=== PATIENT | female | born 1985 | race African-American/Black ===

== ENCOUNTER 2017-09-12 16:50 | Emergency (ER) | payer OTHER ==
[~2017-09-12] VITALS: Ht 165.1 cm; Wt 72.6 kg
[2017-09-12 18:05] LABS: BILIRUBIN,URINE NEGATIVE (NEG); GLUCOSE,URINE NEGATIVE (NEG); NITRITE,URINE NEGATIVE (NEG); PH,URINE 7.5; PROTEIN,URINE NEGATIVE (NEG-TRACE); UROBILINOGEN,URINE 0.2 mg/dL (0.2 mg/dL)
[2017-09-12 18:15] LABS: BACTERIA,URINE FEW /HPF (0-FEW); RBC,URINE >40 /HPF (0-2); SQUAMOUS EPITHELIAL CELL,UR FEW /LPF; WBC,URINE OCC /HPF (0-4)
[2017-09-12 18:24] LABS: BASO # 0.1 x10^3/uL (0.0-0.2); BASO % 1 % (0-3); EOS % 3 % (0-3); HEMATOCRIT 29.5 % (36.0-47.0); HEMOGLOBIN 8.9 g/dL (12.0-15.5); LYMPH # 1.6 x10^3/uL (1.0-4.8); LYMPH % 30 % (24-48); MEAN CORPUSCULAR HEMOGLOBIN 20 pg (25-35); MEAN CORPUSCULAR HGB CONC 30 g/dL (31-37); MEAN CORPUSCULAR VOLUME 68 fL (79-100); MONO % 9 % (0-9); NEUT % 57 % (31-73); PLATELET COUNT 319 x10^3/uL (140-400); RED BLOOD COUNT 4.35 x10^6/uL (3.50-5.40); RED CELL DISTRIBUTION WIDTH 19.6 % (11.5-14.5); WHITE BLOOD COUNT 5.3 x10^3/uL (4.0-11.0)
[2017-09-12 18:56] LABS: PLT ESTIMATE ADEQUATE (ADEQUATE)
[2017-09-12 18:57] LABS: ANISOCYTOSIS SLIGHT; HYPOCHROMIA MOD; MICROCYTOSIS MARKED; OVALOCYTES MOD; POIKILOCYTOSIS MOD
--- NOTE | 2017-09-12 19:04 | RAD ---
Ultrasound pelvis with transvaginal 09/12/2017 CLINICAL INDICATION: Heavy bleeding for 2 days, abnormal bleeding since December 2016. . Technique transabdominal and transvaginal images were obtained. FINDINGS: Uterus is present measuring 9.9 x 6.1 x 5.4 cm with no discrete myometrial mass lesion. Endometrium is normal in thickness measuring 7 mm without abnormal endometrial blood flow. Right ovary is present measuring 4.1 x 2.2 x 1.6 cm. Normal color Doppler imaging on the right ovary. Left ovary is present measuring 2.6 x 3.0 x 1.3 cm with normal color Doppler imaging of the left ovary. There is mild pelvic free fluid. IMPRESSION: 1. Normal thickness endometrium without abnormal blood flow to suggest retained products of conception. 2. Mild pelvic free fluid, may be physiologic. Electronically signed by: Germán Eldridge MD (09/12/2017 7:01 PM) [facility]
[2017-09-12] MEDS ORDERED: ESTR1.25 PO (19:26)
--- NOTE | 2017-09-12 19:26 | PHYS DOC ---
Past Medical History Past Medical History: Unknown Additional Past Medical Histor: Asthma Additional Past Surgical Histo: 2011 and December 2016 Alcohol Use: None Drug Use: None Adult General Chief Complaint Chief Complaint: VAGINAL BLEEDING HPI HPI Patient is a 31 year old female who presents with vaginal bleeding. The patient reports onset of menses yesterday, states she uses 3-4 pads per hour, soaking through her pants. She reports cramping lower abdominal pain. Denies fevers/chills, vomiting, diarrhea, dysuria, vaginal discharge. Denies lightheadedness or syncope. History of heavy menses previously, had to be on hormonal treatment. She states she had elective in 12/2016 with irregular menses since that time. Has a technical publications writer in [place] but wasn't able to make an appointment. Review of Systems Review of Systems Constitutional: Denies fever or chills HENT: Denies nasal congestion or sore throat Respiratory: Denies cough or shortness of breath Cardiovascular: Denies chest pain or edema GI: Reports abdominal pain, denies nausea, vomiting, or diarrhea : Reports vaginal bleeding. Musculoskeletal: Denies back pain or joint pain Integument: Denies rash or skin lesions Neurologic: Denies headache All other systems were reviewed and found to be within normal limits, except as documented in this note. Allergies Allergies Allergies Coded Allergies Type Severity Reaction Last Updated Verified azithromycin Allergy Severe SHORTNESS OF AIR 09/12/17 Yes acetaminophen Adverse Reaction Intermediate Nausea 09/12/17 Yes oxycodone Adverse Reaction Intermediate nausea 09/12/17 Yes Physical Exam Physical Exam Constitutional: Well developed, well nourished, no acute distress, non-toxic appearance. HENT: Normocephalic, atraumatic, bilateral external ears normal, oropharynx moist, nose normal. Eyes: conjunctiva normal, no discharge. Neck: supple, no stridor. Cardiovascular: RRR, no murmurs, no edema. Lungs & Thorax: LCTAB, no wheezing, no respiratory distress. Abdomen: soft, nontender, nondistended. no masses or pulsatile masses, no rebound/guarding. : normal appearing female external genitalia, normal cervix with closed os, moderate amount of red blood in the vaginal vault with clots at the os, no CMT/ adnexal tenderness, no uterine masses. Skin: Warm, dry, no erythema, no rash. Back: No CVA tenderness. Extremities: No tenderness, no edema. Neurologic: Alert and oriented X 3, no focal deficits noted. Psychologic: Affect normal, judgement normal, mood normal. Current Patient Data Vital Signs Vital Signs Date Time Temp Pulse Resp B/P (MAP) Pulse Ox O2 Delivery O2 Flow Rate FiO2 09/12/17 19:41 92 16 122/73 (89) 100 Room Air 09/12/17 18:07 98.9 98.9 Lab Values Laboratory Tests Test 09/12/17 17:09 09/12/17 18:12 Urine Collection Type Unknown Urine Color Yellow Urine Clarity Cloudy Urine pH 7.5 Urine Specific [place] 1.025 Urine Protein Negative mg/dL (NEG-TRACE) Urine Glucose (UA) Negative mg/dL (NEG) Urine Ketones (Stick) Negative mg/dL (NEG) Urine Blood Large (NEG) Urine Nitrite Negative (NEG) Urine Bilirubin Negative (NEG) Urine Urobilinogen Dipstick 0.2 mg/dL (0.2 mg/dL) Urine Leukocyte Esterase Negative (NEG) Urine RBC >40 /HPF (0-2) Urine WBC Occ /HPF (0-4) Urine Squamous Epithelial Cells Few /LPF Urine Bacteria Few /HPF (0-FEW) Urine Mucus Marked /LPF POC Urine HCG, Qualitative Hcg negative (Negative) White Blood Count 5.3 x10^3/uL (4.0-11.0) Red Blood Count 4.35 x10^6/uL (3.50-5.40) Hemoglobin 8.9 g/dL (12.0-15.5) L Hematocrit 29.5 % (36.0-47.0) L Mean Corpuscular Volume 68 fL (79-100) L Mean Corpuscular Hemoglobin 20 pg (25-35) L Mean Corpuscular Hemoglobin Concent 30 g/dL (31-37) L Red Cell Distribution Width 19.6 % (11.5-14.5) H Platelet Count 319 x10^3/uL (140-400) Neutrophils (%) (Auto) 57 % (31-73) Lymphocytes (%) (Auto) 30 % (24-48) Monocytes (%) (Auto) 9 % (0-9) Eosinophils (%) (Auto) 3 % (0-3) Basophils (%) (Auto) 1 % (0-3) Neutrophils # (Auto) 3.0 x10^3uL (1.8-7.7) Lymphocytes # (Auto) 1.6 x10^3/uL (1.0-4.8) Monocytes # (Auto) 0.5 x10^3/uL (0.0-1.1) Eosinophils # (Auto) 0.2 x10^3/uL (0.0-0.7) Basophils # (Auto) 0.1 x10^3/uL (0.0-0.2) Platelet Estimate Adequate (ADEQUATE) Hypochromasia Mod Poikilocytosis Mod Basophilic Stippling Present Anisocytosis Slight Microcytosis Marked Ovalocytes Mod Laboratory Tests 09/12/17 18:12 EKG EKG [] Radiology/Procedures Radiology/Procedures PROCEDURE: PELVIS W/TV Ultrasound pelvis with transvaginal 09/12/2017 CLINICAL INDICATION: Heavy bleeding for 2 days, abnormal bleeding since December 2016. . Technique transabdominal and transvaginal images were obtained. FINDINGS: Uterus is present measuring 9.9 x 6.1 x 5.4 cm with no discrete myometrial mass lesion. Endometrium is normal in thickness measuring 7 mm without abnormal endometrial blood flow. Right ovary is present measuring 4.1 x 2.2 x 1.6 cm. Normal color Doppler imaging on the right ovary. Left ovary is present measuring 2.6 x 3.0 x 1.3 cm with normal color Doppler imaging of the left ovary. There is mild pelvic free fluid. IMPRESSION: 1. Normal thickness endometrium without abnormal blood flow to suggest retained products of conception. 2. Mild pelvic free fluid, may be physiologic. Electronically signed by: Ginette Eldridge MD (09/12/2017 7:01 PM) [facility] DICTATED and SIGNED BY: GINETTE ELDRIDGE MD DATE: 09/12/17 [id number][] Course & Med Decision Making Course & Med Decision Making Pertinent Labs and Imaging studies reviewed. (See chart for details) The patient presents with menorrhagia. Urine HCG negative, noted to be anemic but states previously Hgb has been as low as 6-7 & she elected not to have transfusion. She had stable vitals. Consulted with Dr. Solares of gynecology who recommends premarin 1.25 mg, BID until bleeding stops then daily. She is a nonsmoker, no history of DVT/PE. Recommend rest, hydration, ibuprofen for pain. Follow up with Dr. Solares next Tuesday 09/18 at 1500. Come back for high fever, severe pain, uncontrolled vomiting, heavy bleeding requiring > 1 pad per hour, any otherwise worsening condition. Discharged home in stable condition. [] Dragon Disclaimer Dragon Disclaimer This electronic medical record was generated, in whole or in part, using a voice recognition dictation system. Departure Departure Impression: Primary Impression: Menorrhagia Additional Impression: Anemia Disposition: 01 HOME, SELF-CARE Condition: STABLE Referrals: UNKNOWN PCP NAME (PCP) TWILA SOLARES MD Patient Instructions: Menorrhagia, [id number] Additional Instructions: You were seen in the emergency department today for heavy vaginal bleeding. Your hemoglobin is 8.9. Please take the prescribed medication. Take 1 tablet twice daily until bleeding stops, then take 1 tablet daily. Follow up with Dr. Solares in the gynecology clinic next Saturday at 3:00 PM. Come back for severe pain, uncontrolled vomiting, fainting, any otherwise worsening condition. Scripts Estrogens, Conjugated (PREMARIN) 1.25 Mg Tablet 1 TAB PO see instructions, #30 TAB 0 Refills take 1 tablet by mouth twice daily until bleeding stops, then take 1 tablet by mouth daily. Prov: ZAKI BOJORQUEZ MD 09/12/17 Problem Qualifiers Primary Impression: Menorrhagia Menorrahagia type: with regular cycle Qualified Codes: N92.0 - Excessive and frequent menstruation with regular cycle ZAKI BOJORQUEZ MD Sep 12, 2017 19:26
[2017-09-12 19:41] VITALS: BP 122/73
== END 2017-09-12 19:43 | disposition home or self-care (01) ==
LOC: ER 16:50
DX: N92.0 Excessive and frequent menstruation with regular cycle (principal); D64.9 Anemia, unspecified; N93.9 Abnormal uterine and vaginal bleeding, unspecified; J45.909 Unspecified asthma, uncomplicated; Z88.1 Allergy status to other antibiotic agents; Z88.5 Allergy status to narcotic agent; Z88.6 Allergy status to analgesic agent
CPT/HCPCS: 36415; 76830; 76856; 81001; 81025; 85025; 87491; 87591; 99285-25

== ENCOUNTER 2017-12-18 08:28 | Day surgery (SDC) | payer OTHER ==
[~2017-12-18 08:28] MED LIST: LIDOCAINE 1% PF 2 ML VIAL. ID; ONDANSETRON PF 4 MG/2 ML VIAL. IV; PROCHLORPERAZINE 10 MG/2 ML VIAL. IV; fentaNYL PF VIAL 100 MCG/2 ML VIAL IV
[2017-12-18] MEDS: IV RINGERS,LACTATED 1000ML 1,000 ML IV (08:59)
[2017-12-18 09:16] LABS: NEG OBC UR NEG; POS OBC UR POS
[2017-12-18 09:17] LABS: U PREG PATIENT NEGATIVE (NEG)
[2017-12-18] MEDS ORDERED: LIDOCAINE 2% PF Vial for OR 5 ML VIAL. (09:34)
[2017-12-18] MEDS ORDERED: fentaNYL PF VIAL 100 MCG/2 ML VIAL (09:34)
[2017-12-18] MEDS ORDERED: PROPOFOL 20 ML IV (09:34)
[2017-12-18] MEDS ORDERED: SEVOFLURANE 31 TO 60 MINUTES. IH (10:22)
[2017-12-18] MEDS ORDERED: DEXAMETHASONE SOD PHOS 20 MG/5 ML VIAL. (10:22)
[2017-12-18] MEDS: fentaNYL PF VIAL 100 MCG/2 ML VIAL IV ×2 (11:07→11:28)
[2017-12-18] MEDS: HYDROcodone/APAP 5/325MG 1 TAB TABLET PO (11:28)
== END 2017-12-18 12:26 | disposition home or self-care (01) ==
LOC: SURG 08:28
DX: N93.8 Other specified abnormal uterine and vaginal bleeding (principal); N94.4 Primary dysmenorrhea; J45.909 Unspecified asthma, uncomplicated; D64.9 Anemia, unspecified; G47.39 Other sleep apnea; Z86.2 Personal history of diseases of the blood and blood-forming organs and certain disorders involving the immune mechanism; Z88.6 Allergy status to analgesic agent; Z88.1 Allergy status to other antibiotic agents; Z88.8 Allergy status to other drugs, medicaments and biological substances
CPT/HCPCS: 58558; 81025; 88305; J1100; J2704; J3010; J7120

== ENCOUNTER 2018-03-06 17:26 | Emergency (ER) | payer OTHER ==
[2018-03-06 17:44] LABS: URINE HCG POC HCG POSITIVE (Negative)
[2018-03-06 17:59] LABS: ADD MAN DIFF? NO
[2018-03-06 18:03] LABS: BASO # 0.1 x10^3/uL (0.0-0.2); BASO % 1 % (0-3); EOS # 0.1 x10^3/uL (0.0-0.7); EOS % 1 % (0-3); HEMATOCRIT 23.9 % (36.0-47.0); HEMOGLOBIN 7.4 g/dL (12.0-15.5); LYMPH # 1.6 x10^3/uL (1.0-4.8); LYMPH % 22 % (24-48); MEAN CORPUSCULAR HEMOGLOBIN 19 pg (25-35); MEAN CORPUSCULAR HGB CONC 31 g/dL (31-37); MEAN CORPUSCULAR VOLUME 62 fL (79-100); MONO # 0.6 x10^3/uL (0.0-1.1); MONO % 8 % (0-9); NEUT # 4.9 x10^3uL (1.8-7.7); NEUT % 68 % (31-73); PLATELET COUNT 298 x10^3/uL (140-400); RED BLOOD COUNT 3.87 x10^6/uL (3.50-5.40); RED CELL DISTRIBUTION WIDTH 19.7 % (11.5-14.5); WHITE BLOOD COUNT 7.3 x10^3/uL (4.0-11.0)
[2018-03-06 18:09] LABS: ANION GAP 9 (6-14); BLOOD UREA NITROGEN 13 mg/dL (7-20); CALCIUM 8.8 mg/dL (8.5-10.1); CARBON DIOXIDE 27 mmol/L (21-32); CHLORIDE 106 mmol/L (98-107); CREATININE 0.9 mg/dL (0.6-1.0); GFR 86.7; GLUCOSE 101 mg/dL (70-99); POTASSIUM 3.3 mmol/L (3.5-5.1); SODIUM 142 mmol/L (136-145)
[2018-03-06 18:23] LABS: BILIRUBIN,URINE NEGATIVE (NEG); CLARITY,URINE CLEAR; COLOR,URINE YELLOW; GLUCOSE,URINE NEGATIVE (NEG); NITRITE,URINE NEGATIVE (NEG); PH,URINE 5.5; PROTEIN,URINE NEGATIVE (NEG-TRACE); UROBILINOGEN,URINE 0.2 mg/dL (0.2 mg/dL)
[2018-03-06 18:33] LABS: BACTERIA,URINE 0 /HPF (0-FEW); RBC,URINE 0 /HPF (0-2); SQUAMOUS EPITHELIAL CELL,UR FEW /LPF
[2018-03-06 19:08] LABS: ANISOCYTOSIS SLIGHT; HYPOCHROMIA MARKED; MICROCYTOSIS MARKED; OVALOCYTES FEW; PLT ESTIMATE ADEQUATE (ADEQUATE); POLYCHROMASIA SLIGHT; TARGET CELLS OCC; TEAR DROP CELLS OCC
[2018-03-10 15:25] LABS: CHLAMYDIA PROBE Negative (Negative); GC PROBE Negative (Negative)
== END 2018-03-06 20:28 | disposition home or self-care (01) ==
LOC: ER 17:26
DX: O20.0 Threatened abortion (principal); O23.591 Infection of other part of genital tract in pregnancy, first trimester; O99.011 Anemia complicating pregnancy, first trimester; O99.511 Diseases of the respiratory system complicating pregnancy, first trimester; J45.909 Unspecified asthma, uncomplicated; B96.89 Other specified bacterial agents as the cause of diseases classified elsewhere; Z88.1 Allergy status to other antibiotic agents; Z3A.01 Less than 8 weeks gestation of pregnancy; Z88.5 Allergy status to narcotic agent; Z88.6 Allergy status to analgesic agent
CPT/HCPCS: 36415; 76801; 76817; 80048; 81001; 81025; 84702; 85025; 86850; 86900; 86901; 87491; 87591; 99285-25; Q0111

== ENCOUNTER 2018-03-09 15:18 | Emergency (ER) | payer OTHER ==
[2018-03-09 16:13] LABS: BILIRUBIN,URINE NEGATIVE (NEG); CLARITY,URINE CLEAR; COLOR,URINE YELLOW; GLUCOSE,URINE NEGATIVE (NEG); NITRITE,URINE NEGATIVE (NEG); PH,URINE 5.5; PROTEIN,URINE NEGATIVE (NEG-TRACE); UROBILINOGEN,URINE 0.2 mg/dL (0.2 mg/dL)
[2018-03-09 16:15] LABS: ADD MAN DIFF? NO
[2018-03-09 16:20] LABS: BASO # 0.1 x10^3/uL (0.0-0.2); BASO % 1 % (0-3); EOS # 0.1 x10^3/uL (0.0-0.7); EOS % 1 % (0-3); HEMATOCRIT 23.9 % (36.0-47.0); HEMOGLOBIN 7.4 g/dL (12.0-15.5); LYMPH # 1.5 x10^3/uL (1.0-4.8); LYMPH % 22 % (24-48); MEAN CORPUSCULAR HEMOGLOBIN 19 pg (25-35); MEAN CORPUSCULAR HGB CONC 31 g/dL (31-37); MEAN CORPUSCULAR VOLUME 61 fL (79-100); MONO # 0.7 x10^3/uL (0.0-1.1); MONO % 10 % (0-9); NEUT # 4.3 x10^3uL (1.8-7.7); NEUT % 66 % (31-73); PLATELET COUNT 309 x10^3/uL (140-400); RED BLOOD COUNT 3.91 x10^6/uL (3.50-5.40); RED CELL DISTRIBUTION WIDTH 20.1 % (11.5-14.5); WHITE BLOOD COUNT 6.6 x10^3/uL (4.0-11.0)
[2018-03-09 16:25] LABS: BACTERIA,URINE FEW /HPF (0-FEW); RBC,URINE 0 /HPF (0-2); SQUAMOUS EPITHELIAL CELL,UR MANY /LPF; WBC,URINE OCC /HPF (0-4)
[2018-03-09 16:30] LABS: ANION GAP 9 (6-14); BLOOD UREA NITROGEN 11 mg/dL (7-20); CALCIUM 8.6 mg/dL (8.5-10.1); CARBON DIOXIDE 27 mmol/L (21-32); CHLORIDE 104 mmol/L (98-107); CREATININE 0.7 mg/dL (0.6-1.0); GFR 115.9; GLUCOSE 78 mg/dL (70-99); POTASSIUM 3.4 mmol/L (3.5-5.1); SODIUM 140 mmol/L (136-145)
[2018-03-09 16:47] LABS: ANISOCYTOSIS MOD; HYPOCHROMIA MOD; MICROCYTOSIS MARKED; PLT ESTIMATE ADEQUATE (ADEQUATE); POLYCHROMASIA SLIGHT; SCHISTOCYTES OCC
[2018-03-09 16:48] LABS: OVALOCYTES FEW
== END 2018-03-09 18:58 | disposition home or self-care (01) ==
LOC: ER 18:58
DX: O20.0 Threatened abortion (principal); O99.511 Diseases of the respiratory system complicating pregnancy, first trimester; J45.909 Unspecified asthma, uncomplicated; Z3A.01 Less than 8 weeks gestation of pregnancy; Z88.1 Allergy status to other antibiotic agents; Z88.5 Allergy status to narcotic agent
CPT/HCPCS: 36415; 76801; 76817; 80048; 81001; 84702; 85025; 99285-25

== ENCOUNTER 2018-03-15 12:09 | Emergency (ER) | payer OTHER ==
[2018-03-15 12:24] LABS: URINE HCG POC HCG POSITIVE (Negative)
[2018-03-15] MEDS: ONDANSETRON ODT 4 MG TAB.RAPDIS. PO (13:29)
== END 2018-03-15 15:29 | disposition home or self-care (01) ==
LOC: ER 12:09
DX: O20.0 Threatened abortion (principal); O23.591 Infection of other part of genital tract in pregnancy, first trimester; N76.0 Acute vaginitis; B96.89 Other specified bacterial agents as the cause of diseases classified elsewhere; O99.511 Diseases of the respiratory system complicating pregnancy, first trimester; J45.909 Unspecified asthma, uncomplicated; Z3A.01 Less than 8 weeks gestation of pregnancy; Z88.5 Allergy status to narcotic agent; Z88.1 Allergy status to other antibiotic agents
CPT/HCPCS: 36415; 76805; 76817; 81025; 84702; 99285-25; Q0162

== ENCOUNTER 2018-03-23 19:25 | Emergency (ER) | payer OTHER ==
[2018-03-23 20:44] LABS: BILIRUBIN,URINE NEGATIVE (NEG); CLARITY,URINE CLEAR; COLOR,URINE YELLOW; GLUCOSE,URINE NEGATIVE (NEG); NITRITE,URINE NEGATIVE (NEG); PROTEIN,URINE NEGATIVE (NEG-TRACE); UROBILINOGEN,URINE 0.2 mg/dL (0.2 mg/dL)
[2018-03-23] MEDS: ONDANSETRON PF 4 MG/2 ML VIAL. IV (20:45)
[2018-03-23] MEDS: IV NORMAL SALINE 1000ML BAG 1,000 ML IV (20:45)
[2018-03-23 20:52] LABS: BACTERIA,URINE 0 /HPF (0-FEW); RBC,URINE 0 /HPF (0-2); SQUAMOUS EPITHELIAL CELL,UR FEW /LPF
[2018-03-23 21:03] LABS: ADD MAN DIFF? NO
[2018-03-23 21:12] LABS: ANION GAP 9 (6-14); BASO % 1 % (0-3); BLOOD UREA NITROGEN 16 mg/dL (7-20); BUN/CREATININE RATIO 20 (6-20); CALCIUM 8.8 mg/dL (8.5-10.1); CARBON DIOXIDE 27 mmol/L (21-32); CHLORIDE 102 mmol/L (98-107); CREATININE 0.8 mg/dL (0.6-1.0); EOS # 0.1 x10^3/uL (0.0-0.7); EOS % 1 % (0-3); GFR 99.4; GLUCOSE 81 mg/dL (70-99); HEMATOCRIT 24.9 % (36.0-47.0); HEMOGLOBIN 7.8 g/dL (12.0-15.5); LYMPH # 1.9 x10^3/uL (1.0-4.8); LYMPH % 19 % (24-48); MEAN CORPUSCULAR HEMOGLOBIN 19 pg (25-35); MEAN CORPUSCULAR HGB CONC 31 g/dL (31-37); MEAN CORPUSCULAR VOLUME 61 fL (79-100); MONO # 0.8 x10^3/uL (0.0-1.1); MONO % 8 % (0-9); NEUT # 7.4 x10^3uL (1.8-7.7); NEUT % 72 % (31-73); PLATELET COUNT 315 x10^3/uL (140-400); POTASSIUM 3.6 mmol/L (3.5-5.1); RED BLOOD COUNT 4.05 x10^6/uL (3.50-5.40); RED CELL DISTRIBUTION WIDTH 20.8 % (11.5-14.5); SODIUM 138 mmol/L (136-145); WHITE BLOOD COUNT 10.3 x10^3/uL (4.0-11.0)
[2018-03-23 21:17] LABS: ALBUMIN 3.4 g/dL (3.4-5.0); ALBUMIN/GLOBULIN RATIO 0.7 (1.0-1.7); ALK PHOS 61 U/L (46-116); ALT (SGPT) 21 U/L (14-59); AST (SGOT) 22 U/L (15-37); TOTAL BILIRUBIN 0.2 mg/dL (0.2-1.0); TOTAL PROTEIN 8.6 g/dL (6.4-8.2)
[2018-03-23 21:56] LABS: ANISOCYTOSIS MOD; HYPOCHROMIA MARKED; MICROCYTOSIS MARKED; OVALOCYTES FEW; PLT ESTIMATE ADEQUATE (ADEQUATE)
== END 2018-03-23 23:27 | disposition home or self-care (01) ==
LOC: ER 23:27
DX: O21.0 Mild hyperemesis gravidarum (principal); O99.511 Diseases of the respiratory system complicating pregnancy, first trimester; J45.909 Unspecified asthma, uncomplicated; Z88.5 Allergy status to narcotic agent; Z88.1 Allergy status to other antibiotic agents; Z88.6 Allergy status to analgesic agent; Z3A.01 Less than 8 weeks gestation of pregnancy
CPT/HCPCS: 36415; 80053; 81001; 85025; 87086; 96361; 96374; 99284; J2405; J7030

== ENCOUNTER 2018-07-24 18:53 | Emergency (ER) | payer OTHER ==
[~2018-07-24] VITALS: Ht 165.1 cm; Wt 83.5 kg
[~2018-07-24 18:53] MED LIST changes: +ESTR1.25 PO; -LIDOCAINE 1% PF 2 ML VIAL. ID; +METR45CR2 TP; +METR500T PO; +ONDA4TAB10 SL; -ONDANSETRON PF 4 MG/2 ML VIAL. IV; +PROAIR HFA8.5 GM INH; -PROCHLORPERAZINE 10 MG/2 ML VIAL. IV; -fentaNYL PF VIAL 100 MCG/2 ML VIAL IV
[2018-07-24 20:38] LABS: BILIRUBIN,URINE NEGATIVE (NEG); CLARITY,URINE CLEAR; COLOR,URINE YELLOW; NITRITE,URINE NEGATIVE (NEG); PH,URINE 5.5; PROTEIN,URINE NEGATIVE (NEG-TRACE)
[2018-07-24 20:57] LABS: BACTERIA,URINE 0 /HPF (0-FEW); RBC,URINE 0 /HPF (0-2); SQUAMOUS EPITHELIAL CELL,UR OCC /LPF; WBC,URINE OCC /HPF (0-4)
[2018-07-24 21:00] LABS: BASO % 1 % (0-3); EOS # 0.1 x10^3/uL (0.0-0.7); EOS % 2 % (0-3); HEMATOCRIT 30.9 % (36.0-47.0); HEMOGLOBIN 10.4 g/dL (12.0-15.5); LYMPH # 1.6 x10^3/uL (1.0-4.8); LYMPH % 30 % (24-48); MEAN CORPUSCULAR HEMOGLOBIN 26 pg (25-35); MEAN CORPUSCULAR HGB CONC 34 g/dL (31-37); MEAN CORPUSCULAR VOLUME 79 fL (79-100); MONO # 0.5 x10^3/uL (0.0-1.1); MONO % 10 % (0-9); NEUT % 57 % (31-73); PLATELET COUNT 220 x10^3/uL (140-400); RED BLOOD COUNT 3.93 x10^6/uL (3.50-5.40); RED CELL DISTRIBUTION WIDTH 20.7 % (11.5-14.5); WHITE BLOOD COUNT 5.3 x10^3/uL (4.0-11.0)
[2018-07-24] MEDS ORDERED: DOXYCYCLINE HYCLATE 100 MG TABLET PO ONE (21:00)
[2018-07-24] MEDS ORDERED: cefTRIAXone IM 250 MG VIAL IM ONE (21:00)
[2018-07-24 21:09] LABS: CREATININE 0.8 mg/dL (0.6-1.0); GFR 99.4; POTASSIUM 3.3 mmol/L (3.5-5.1)
[2018-07-24 21:16] LABS: ALBUMIN 3.5 g/dL (3.4-5.0); ALBUMIN/GLOBULIN RATIO 0.8 (1.0-1.7); TOTAL BILIRUBIN 0.2 mg/dL (0.2-1.0); TOTAL PROTEIN 7.8 g/dL (6.4-8.2)
[2018-07-24 21:44] LABS: ANISOCYTOSIS MOD; PLT ESTIMATE ADEQUATE (ADEQUATE); POIKILOCYTOSIS SLIGHT
[2018-07-24 21:45] LABS: OVALOCYTES OCC
--- NOTE | 2018-07-24 21:55 | RAD ---
Pelvic ultrasound to include transabdominal and transvaginal imaging 07/24/2018 CLINICAL HISTORY: Pelvic pain with irregular menstrual cycles. TECHNIQUE: Using the distended urinary bladder as a sonographic window, a real-time ultrasound examination of the pelvis was formed. Additionally in an attempt to better evaluate the uterus and adnexa, a transvaginal ultrasound was performed. Multiple images were obtained. FINDINGS: Comparison study is dated 09/12/2017. The uterus is mildly enlarged. It measures 11.4 x 6.8 x 5.6 cm in longitudinal, transverse, and AP dimensions. The endometrial echo complex measures 1.3 cm in thickness which is within normal limits. The uterus is heterogeneous consistent with fibroid involvement. The largest discrete fibroid is located within the posterior aspect of the uterine body. It measures 2 cm in greatest diameter. Both ovaries are within normal limits in size and echogenicity. The right ovary measures 3.3 x 2.2 x 1.5 cm in size. The left ovary measures 3.5 x 2.5 x 1.7 cm in size. No adnexal mass is seen. A small amount of free fluid is seen within the pelvis. IMPRESSION: 1. Enlarged fibroid uterus. 2. Small amount of free fluid. Electronically signed by: Stewart Rosado MD (07/24/2018 9:51 PM) [facility]
[2018-07-25] MEDS ORDERED: DOXY100C14 PO (00:26)
[2018-07-25] MEDS ORDERED: METR500T PO (00:26)
--- NOTE | 2018-07-25 00:27 | PHYS DOC ---
Past Medical History Past Medical History: Anemia, Asthma Additional Past Medical Histor: Asthma Past Surgical History: Other Additional Past Surgical Histo: X 2011 and December 2016 Alcohol Use: None Drug Use: None Adult General Chief Complaint Chief Complaint: ABDOMINAL PAIN HPI HPI Patient is a 32 year old [f__sex] who presents with [] Review of Systems Review of Systems Constitutional: Denies fever or chills [] Eyes: Denies change in visual acuity, redness, or eye pain [] HENT: Denies nasal congestion or sore throat [] Respiratory: Denies cough or shortness of breath [] Cardiovascular: No additional information not addressed in HPI [] GI: Denies abdominal pain, nausea, vomiting, bloody stools or diarrhea [] : Denies dysuria or hematuria [] Musculoskeletal: Denies back pain or joint pain [] Integument: Denies rash or skin lesions [] Neurologic: Denies headache, focal weakness or sensory changes [] Endocrine: Denies polyuria or polydipsia [] All other systems were reviewed and found to be within normal limits, except as documented in this note. Current Medications Current Medications Current Medications Medications (Trade) Dose Ordered Sig/Bhavani Start Time Stop Time Status Last Admin Dose Admin Ceftriaxone Sodium (Rocephin Im) 250 mg 1X ONCE 07/24/18 21:00 07/24/18 21:02 DC 07/24/18 21:50 250 MG Doxycycline Hyclate (Vibra-Tab) 100 mg 1X ONCE 07/24/18 21:00 07/24/18 21:02 DC 07/24/18 21:51 100 MG Allergies Allergies Allergies Coded Allergies Type Severity Reaction Last Updated Verified azithromycin Allergy Severe SHORTNESS OF AIR 12/18/17 Yes acetaminophen Adverse Reaction Intermediate Nausea 12/18/17 Yes oxycodone Adverse Reaction Intermediate nausea 12/18/17 Yes Physical Exam Physical Exam Constitutional: Well developed, well nourished, no acute distress, non-toxic appearance. [] HENT: Normocephalic, atraumatic, bilateral external ears normal, oropharynx moist, no oral exudates, nose normal. [] Eyes: PERRLA, EOMI, conjunctiva normal, no discharge. [] Neck: Normal range of motion, no tenderness, supple, no stridor. [] Cardiovascular:Heart rate regular rhythm, no murmur [] Lungs & Thorax: Bilateral breath sounds clear to auscultation [] Abdomen: Bowel sounds normal, soft, no tenderness, no masses, no pulsatile masses. [] Skin: Warm, dry, no erythema, no rash. [] Back: No tenderness, no CVA tenderness. [] Extremities: No tenderness, no cyanosis, no clubbing, ROM intact, no edema. [] Neurologic: Alert and oriented X 3, normal motor function, normal sensory function, no focal deficits noted. [] Psychologic: Affect normal, judgement normal, mood normal. [] Current Patient Data Vital Signs Vital Signs Date Time Temp Pulse Resp B/P (MAP) Pulse Ox O2 Delivery O2 Flow Rate FiO2 07/24/18 19:35 99.1 90 18 108/94 (99) 100 Room Air 99.1 Lab Values Laboratory Tests Test 07/24/18 19:35 07/24/18 20:16 07/24/18 20:51 Urine Collection Type Unknown Urine Color Yellow Urine Clarity Clear Urine pH 5.5 Urine Specific [place] >=1.030 Urine Protein Negative mg/dL (NEG-TRACE) Urine Glucose (UA) Negative mg/dL (NEG) Urine Ketones (Stick) Negative mg/dL (NEG) Urine Blood Negative (NEG) Urine Nitrite Negative (NEG) Urine Bilirubin Negative (NEG) Urine Urobilinogen Dipstick 1.0 mg/dL (0.2 mg/dL) Urine Leukocyte Esterase Negative (NEG) Urine RBC 0 /HPF (0-2) Urine WBC Occ /HPF (0-4) Urine Squamous Epithelial Cells Occ /LPF Urine Bacteria 0 /HPF (0-FEW) Urine Mucus Marked /LPF POC Urine HCG, Qualitative Hcg negative (Negative) White Blood Count 5.3 x10^3/uL (4.0-11.0) Red Blood Count 3.93 x10^6/uL (3.50-5.40) Hemoglobin 10.4 g/dL (12.0-15.5) L Hematocrit 30.9 % (36.0-47.0) L Mean Corpuscular Volume 79 fL (79-100) Mean Corpuscular Hemoglobin 26 pg (25-35) Mean Corpuscular Hemoglobin Concent 34 g/dL (31-37) Red Cell Distribution Width 20.7 % (11.5-14.5) H Platelet Count 220 x10^3/uL (140-400) Neutrophils (%) (Auto) 57 % (31-73) Lymphocytes (%) (Auto) 30 % (24-48) Monocytes (%) (Auto) 10 % (0-9) H Eosinophils (%) (Auto) 2 % (0-3) Basophils (%) (Auto) 1 % (0-3) Neutrophils # (Auto) 3.0 x10^3uL (1.8-7.7) Lymphocytes # (Auto) 1.6 x10^3/uL (1.0-4.8) Monocytes # (Auto) 0.5 x10^3/uL (0.0-1.1) Eosinophils # (Auto) 0.1 x10^3/uL (0.0-0.7) Basophils # (Auto) 0.0 x10^3/uL (0.0-0.2) Platelet Estimate Adequate (ADEQUATE) Poikilocytosis Slight Anisocytosis Mod Ovalocytes Occ Sodium Level 141 mmol/L (136-145) Potassium Level 3.3 mmol/L (3.5-5.1) L Chloride Level 104 mmol/L (98-107) Carbon Dioxide Level 32 mmol/L (21-32) Anion Gap 5 (6-14) L Blood Urea Nitrogen 13 mg/dL (7-20) Creatinine 0.8 mg/dL (0.6-1.0) Estimated GFR (Cockcroft-Gault) 99.4 BUN/Creatinine Ratio 16 (6-20) Glucose Level 81 mg/dL (70-99) Calcium Level 9.0 mg/dL (8.5-10.1) Magnesium Level 2.0 mg/dL (1.8-2.4) Total Bilirubin 0.2 mg/dL (0.2-1.0) Aspartate Amino Transferase (AST) 16 U/L (15-37) Alanine Aminotransferase (ALT) 23 U/L (14-59) Alkaline Phosphatase 56 U/L (46-116) Total Protein 7.8 g/dL (6.4-8.2) Albumin 3.5 g/dL (3.4-5.0) Albumin/Globulin Ratio 0.8 (1.0-1.7) L Laboratory Tests 07/24/18 20:51 Laboratory Tests 07/24/18 20:51 Microbiology 07/24/18 Wet Prep - Final, Complete EKG EKG [] Radiology/Procedures Radiology/Procedures PROCEDURE: PELVIS W/TV Pelvic ultrasound to include transabdominal and transvaginal imaging 07/24/2018 CLINICAL HISTORY: Pelvic pain with irregular menstrual cycles. TECHNIQUE: Using the distended urinary bladder as a sonographic window, a real-time ultrasound examination of the pelvis was formed. Additionally in an attempt to better evaluate the uterus and adnexa, a transvaginal ultrasound was performed. Multiple images were obtained. FINDINGS: Comparison study is dated 09/12/2017. The uterus is mildly enlarged. It measures 11.4 x 6.8 x 5.6 cm in longitudinal, transverse, and AP dimensions. The endometrial echo complex measures 1.3 cm in thickness which is within normal limits. The uterus is heterogeneous consistent with fibroid involvement. The largest discrete fibroid is located within the posterior aspect of the uterine body. It measures 2 cm in greatest diameter. Both ovaries are within normal limits in size and echogenicity. The right ovary measures 3.3 x 2.2 x 1.5 cm in size. The left ovary measures 3.5 x 2.5 x 1.7 cm in size. No adnexal mass is seen. A small amount of free fluid is seen within the pelvis. IMPRESSION: 1. Enlarged fibroid uterus. 2. Small amount of free fluid. Electronically signed by: Stewart Rosado MD (07/24/2018 9:51 PM) [facility] Course & Med Decision Making Course & Med Decision Making Pertinent Labs and Imaging studies reviewed. (See chart for details) [] Dragon Disclaimer Dragon Disclaimer This electronic medical record was generated, in whole or in part, using a voice recognition dictation system. Departure Departure Impression: Primary Impression: Abnormal uterine bleeding (AUB) Additional Impressions: Bacterial vaginosis Uterine fibroid Disposition: 01 HOME, SELF-CARE Condition: STABLE Referrals: UNKNOWN PCP NAME (PCP) TWILA BORJA MD Patient Instructions: Abnormal Uterine Bleeding, Bacterial Vaginosis, Easy-to- Read, Uterine Fibroid, [id number] Scripts Doxycycline Monohydrate (DOXYCYCLINE MONOHYDRATE) 100 Mg Capsule 1 CAP PO BID for 7 Days, #14 CAP Prov: NATO BIRMINGHAM DO 07/25/18 Metronidazole (FLAGYL) 500 Mg Tablet 500 MG PO BID for 7 Days, #14 TAB Prov: NATO BIRMINGH[place] DO 07/25/18 Problem Qualifiers Additional Impressions: Uterine fibroid Uterine leiomyoma location: unspecified location Qualified Codes: D25.9 - Leiomyoma of uterus, unspecified NATO BIR[place]AM DO Jul 25, 2018 00:27
[2018-07-25 00:30] VITALS: BP 119/65
[2018-07-25 00:36] LABS: FECAL OB PT POSITIVE (NEG)
[2018-07-25] MEDS ORDERED: metroNIDAZOLE 500 MG TABLET PO ONE (00:45)
[2018-07-28 15:24] LABS: GC PROBE Negative (Negative)
== END 2018-07-25 00:54 | disposition home or self-care (01) ==
LOC: ER 18:53
DX: D25.9 Leiomyoma of uterus, unspecified (principal); N76.0 Acute vaginitis; B96.89 Other specified bacterial agents as the cause of diseases classified elsewhere; N93.9 Abnormal uterine and vaginal bleeding, unspecified; J45.909 Unspecified asthma, uncomplicated; Z88.1 Allergy status to other antibiotic agents; Z88.5 Allergy status to narcotic agent; Z88.6 Allergy status to analgesic agent
CPT/HCPCS: 36415; 76830; 76856; 80053; 81001; 81025; 82274; 83735; 85025; 87491; 87591; 96372; 99285; J0696; Q0111

== ENCOUNTER 2019-03-05 19:16 | Emergency (ER) | payer OTHER ==
[~2019-03-05] VITALS: Ht 165.1 cm; Wt 81.6 kg
[~2019-03-05 19:16] MED LIST changes: +ALBU2.5V8 INH; +DOXY100C14 PO; -PROAIR HFA8.5 GM INH
--- NOTE | 2019-03-05 21:38 | PHYS DOC ---
Past Medical History Past Medical History: Anemia, Asthma Additional Past Medical Histor: Asthma (SALTY SLADE APRN) Past Surgical History: Other Additional Past Surgical Histo: X , 2011 and December 2016,D&C (SALTY SLADE APRN) Additional Information: non smoker Alcohol Use: None Drug Use: None (SALTY SLADE APRN) Adult General Chief Complaint Chief Complaint: COUGH HPI HPI Patient is a 33-year-old female who presents with fatigue cough and chest pain. Started on Saturday around noon. Patient has a history of anemia. Rates her pain 5 out of 10 and states that it is achy. (SALTY SLADE APRN) Review of Systems Review of Systems Constitutional: Denies fever or chills [] Eyes: Denies change in visual acuity, redness, or eye pain [] HENT: Reports nasal congestion Denies sore throat [] Respiratory: Reports cough denies shortness of breath [] Cardiovascular: Reports CP. Denies syncope. GI: Denies abdominal pain, nausea, vomiting, bloody stools or diarrhea [] : Denies dysuria or hematuria [] Musculoskeletal: Denies back pain or joint pain [] Integument: Denies rash or skin lesions [] Neurologic: Denies headache, focal weakness or sensory changes [] Endocrine: Denies polyuria or polydipsia [] Complete systems were reviewed and found to be within normal limits, except as documented in this note. (SALTY SLADE APRN) Current Medications Current Medications Current Medications Medications (Trade) Dose Ordered Sig/Bhavani Start Time Stop Time Status Last Admin Dose Admin Dexamethasone (Decadron) 10 mg 1X ONCE 03/05/19 23:55 03/05/19 23:56 DC 03/06/19 00:25 10 MG (GOLLAPALLI,RICARDO E DO) Allergies Allergies Allergies Coded Allergies Type Severity Reaction Last Updated Verified azithromycin Allergy Severe SHORTNESS OF AIR 12/18/17 Yes acetaminophen Adverse Reaction Intermediate Nausea 12/18/17 Yes oxycodone Adverse Reaction Intermediate nausea 12/18/17 Yes (GOLLAPALLI,RICARDO E DO) Physical Exam Physical Exam Constitutional: Well developed, well nourished, no acute distress, non-toxic appearance. [] HENT: Normocephalic, atraumatic, bilateral external ears normal, oropharynx moist, no oral exudates, nose normal. [] Eyes: PERRLA, EOMI, conjunctiva normal, no discharge. [] Neck: Normal range of motion, no tenderness, supple, no stridor. [] Cardiovascular:Heart rate regular rhythm, no murmur [] Lungs & Thorax: Bilateral breath sounds clear to auscultation [] Abdomen: Bowel sounds normal, soft, no tenderness, no masses, no pulsatile masses. [] Skin: Warm, dry, no erythema, no rash. [] Back: No tenderness, no CVA tenderness. [] Extremities: No tenderness, no cyanosis, no clubbing, ROM intact, no edema. [] Neurologic: Alert and oriented X 3, normal motor function, normal sensory function, no focal deficits noted. [] Psychologic: Affect normal, judgement normal, mood normal. [] (SALTY SLADE APRN) Current Patient Data Vital Signs Vital Signs Date Time Temp Pulse Resp B/P (MAP) Pulse Ox O2 Delivery O2 Flow Rate FiO2 03/05/19 22:50 88 22 142/88 (106) 98 Room Air 03/05/19 20:30 98.8 98.8 ([facility],RICARDO E DO) Lab Values Laboratory Tests Test 03/05/19 22:35 White Blood Count 5.9 x10^3/uL (4.0-11.0) Red Blood Count 4.05 x10^6/uL (3.50-5.40) Hemoglobin 9.7 g/dL (12.0-15.5) L Hematocrit 30.3 % (36.0-47.0) L Mean Corpuscular Volume 75 fL (79-100) L Mean Corpuscular Hemoglobin 24 pg (25-35) L Mean Corpuscular Hemoglobin Concent 32 g/dL (31-37) Red Cell Distribution Width 17.2 % (11.5-14.5) H Platelet Count 259 x10^3/uL (140-400) Neutrophils (%) (Auto) 59 % (31-73) Lymphocytes (%) (Auto) 29 % (24-48) Monocytes (%) (Auto) 8 % (0-9) Eosinophils (%) (Auto) 3 % (0-3) Basophils (%) (Auto) 1 % (0-3) Neutrophils # (Auto) 3.5 x10^3uL (1.8-7.7) Lymphocytes # (Auto) 1.7 x10^3/uL (1.0-4.8) Monocytes # (Auto) 0.5 x10^3/uL (0.0-1.1) Eosinophils # (Auto) 0.2 x10^3/uL (0.0-0.7) Basophils # (Auto) 0.0 x10^3/uL (0.0-0.2) Sodium Level 141 mmol/L (136-145) Potassium Level 3.4 mmol/L (3.5-5.1) L Chloride Level 102 mmol/L (98-107) Carbon Dioxide Level 28 mmol/L (21-32) Anion Gap 11 (6-14) Blood Urea Nitrogen 15 mg/dL (7-20) Creatinine 0.8 mg/dL (0.6-1.0) Estimated GFR (Cockcroft-Gault) 98.8 BUN/Creatinine Ratio 19 (6-20) Glucose Level 91 mg/dL (70-99) Calcium Level 9.0 mg/dL (8.5-10.1) Total Bilirubin 0.2 mg/dL (0.2-1.0) Aspartate Amino Transferase (AST) 24 U/L (15-37) Alanine Aminotransferase (ALT) 33 U/L (14-59) Alkaline Phosphatase 56 U/L (46-116) Troponin I Quantitative < 0.017 ng/mL (0.000-0.055) Total Protein 8.2 g/dL (6.4-8.2) Albumin 3.7 g/dL (3.4-5.0) Albumin/Globulin Ratio 0.8 (1.0-1.7) L Laboratory Tests 03/05/19 22:35 Laboratory Tests 03/05/19 22:35 ([facility],RICARDO E DO) Lab Values Laboratory Tests Test 03/05/19 22:35 White Blood Count 5.9 x10^3/uL (4.0-11.0) Red Blood Count 4.05 x10^6/uL (3.50-5.40) Hemoglobin 9.7 g/dL (12.0-15.5) L Hematocrit 30.3 % (36.0-47.0) L Mean Corpuscular Volume 75 fL (79-100) L Mean Corpuscular Hemoglobin 24 pg (25-35) L Mean Corpuscular Hemoglobin Concent 32 g/dL (31-37) Red Cell Distribution Width 17.2 % (11.5-14.5) H Platelet Count 259 x10^3/uL (140-400) Neutrophils (%) (Auto) 59 % (31-73) Lymphocytes (%) (Auto) 29 % (24-48) Monocytes (%) (Auto) 8 % (0-9) Eosinophils (%) (Auto) 3 % (0-3) Basophils (%) (Auto) 1 % (0-3) Neutrophils # (Auto) 3.5 x10^3uL (1.8-7.7) Lymphocytes # (Auto) 1.7 x10^3/uL (1.0-4.8) Monocytes # (Auto) 0.5 x10^3/uL (0.0-1.1) Eosinophils # (Auto) 0.2 x10^3/uL (0.0-0.7) Basophils # (Auto) 0.0 x10^3/uL (0.0-0.2) Sodium Level 141 mmol/L (136-145) Potassium Level 3.4 mmol/L (3.5-5.1) L Chloride Level 102 mmol/L (98-107) Carbon Dioxide Level 28 mmol/L (21-32) Anion Gap 11 (6-14) Blood Urea Nitrogen 15 mg/dL (7-20) Creatinine 0.8 mg/dL (0.6-1.0) Estimated GFR (Cockcroft-Gault) 98.8 BUN/Creatinine Ratio 19 (6-20) Glucose Level 91 mg/dL (70-99) Calcium Level 9.0 mg/dL (8.5-10.1) Total Bilirubin 0.2 mg/dL (0.2-1.0) Aspartate Amino Transferase (AST) 24 U/L (15-37) Alanine Aminotransferase (ALT) 33 U/L (14-59) Alkaline Phosphatase 56 U/L (46-116) Troponin I Quantitative < 0.017 ng/mL (0.000-0.055) Total Protein 8.2 g/dL (6.4-8.2) Albumin 3.7 g/dL (3.4-5.0) Albumin/Globulin Ratio 0.8 (1.0-1.7) L Laboratory Tests 03/05/19 22:35 Laboratory Tests 03/05/19 22:35 (SALTY SLADE APRN) EKG EKG EKG interpreted by Dr. Candelario. No STEMI. Normal Sinus Rhythm with rate of 68. [] (SALTY SLADE APRN) Radiology/Procedures Radiology/Procedures []RICARDO CANDELARIO DO Prelim interpretation: No abnormal findings noted. PATIENT: HENRIQUE LANDIN ACCOUNT: [id number] : 1985 LOCATION: ER AGE: 33 SEX: F EXAM STATUS: REG ER ORD. PHYSICIAN: SLATY SLADE APRN REASON: cp/sob PROCEDURE: CHEST PA & LATERAL CHEST PA LATERAL History: COUGH X 2 DAYS. No prior for comparison. Heart size is mildly widened in transverse diameter. No evidence of pneumothorax. No pleural effusion. The skeletal structures appear grossly intact. IMPRESSION: No evidence of consolidating infiltrate. Electronically signed by: Salty Sweeney MD (03/05/2019 10:30 PM) [facility] (SALTY SLADE APRN) Course & Med Decision Making Course & Med Decision Making Pertinent Labs and Imaging studies reviewed. (See chart for details) Discussed with patient her signs and symptoms. Will do a chest pain workup. Patient is agreeable to plan. Hgb was 9.7. Patient states that she has been as low as 7. Otherwise unremarkable workup. Will discharge patient home. She is agreeable to this. (SALTY SLADE APRN) Dragon Disclaimer Dragon Disclaimer This electronic medical record was generated, in whole or in part, using a voice recognition dictation system. (SALTY SLADE APRN) Dragon Disclaimer The mid-level provider has independently evaluated and treated this patient. I was available for consultation throughout the patient care by the mid-level provider. I agree with the care provided by the mid-level provider (RICARDO CANDELARIO DO) Departure Departure Impression: Primary Impression: Chest pain Additional Impression: Cough Disposition: HOME, SELF-CARE Condition: STABLE Referrals: UNKNOWN PCP NAME (PCP) Patient Instructions: Chest Pain (Nonspecific), [id number], Cough, Adult, [id number], Iron Deficiency Anemia Additional Instructions: Please follow up with your primary care doctor for further management. Your testing today was inconclusive. You can take ibuprofen OTC to help with s ymptoms. Problem Qualifiers Primary Impression: Chest pain Chest pain type: unspecified Qualified Codes: R07.9 - Chest pain, unspecified SALTY SLADE APRN March 05, 2019 21:38 RICARDO CANDELARIO DO March 06, 2019 06:02
--- NOTE | 2019-03-05 22:33 | RAD ---
CHEST PA LATERAL History: COUGH X 2 DAYS. No prior for comparison. Heart size is mildly widened in transverse diameter. No evidence of pneumothorax. No pleural effusion. The skeletal structures appear grossly intact. IMPRESSION: No evidence of consolidating infiltrate. Electronically signed by: Salty Sweeney MD (03/05/2019 10:30 PM) [facility]
[2019-03-05 22:50] VITALS: BP 142/88
[2019-03-05 22:52] LABS: BASO % 1 % (0-3); EOS # 0.2 x10^3/uL (0.0-0.7); EOS % 3 % (0-3); HEMATOCRIT 30.3 % (36.0-47.0); HEMOGLOBIN 9.7 g/dL (12.0-15.5); LYMPH # 1.7 x10^3/uL (1.0-4.8); LYMPH % 29 % (24-48); MEAN CORPUSCULAR HEMOGLOBIN 24 pg (25-35); MEAN CORPUSCULAR HGB CONC 32 g/dL (31-37); MEAN CORPUSCULAR VOLUME 75 fL (79-100); MONO # 0.5 x10^3/uL (0.0-1.1); MONO % 8 % (0-9); NEUT # 3.5 x10^3uL (1.8-7.7); NEUT % 59 % (31-73); PLATELET COUNT 259 x10^3/uL (140-400); RED BLOOD COUNT 4.05 x10^6/uL (3.50-5.40); RED CELL DISTRIBUTION WIDTH 17.2 % (11.5-14.5); WHITE BLOOD COUNT 5.9 x10^3/uL (4.0-11.0)
[2019-03-05 23:22] LABS: CREATININE 0.8 mg/dL (0.6-1.0); GFR 98.8; POTASSIUM 3.4 mmol/L (3.5-5.1)
[2019-03-05 23:27] LABS: ALBUMIN 3.7 g/dL (3.4-5.0); ALBUMIN/GLOBULIN RATIO 0.8 (1.0-1.7); TOTAL BILIRUBIN 0.2 mg/dL (0.2-1.0); TOTAL PROTEIN 8.2 g/dL (6.4-8.2)
[2019-03-05] MEDS ORDERED: DEXAMETHASONE 4 MG TABLET PO ONE (23:55)
--- NOTE | 2019-03-06 07:01 | EKG ---
[facility] [address] [place] [address] Test Date: 2019-03-05 Test Time: 22:28:49 Pat Name: HENRIQUE LANDIN Department: Room: Gender: F Pouncer Machine: : 1985 Requested By: NATO SLADE Order Number: [id number] Reading MD: Abhi Fernández Measurements Intervals [place] Rate: 68 P: 27 RI: 132 QRS: 43 QRSD: 94 T: 32 QT: 378 QTc: 406 Interpretive Statements SINUS RHYTHM NONSPECIFIC ST-T WAVE CHANGES. Electronically Signed On 03-06-2019 10:17:15 CDT by Abhi Fernández
== END 2019-03-06 00:20 | disposition home or self-care (01) ==
LOC: ER 19:16
DX: R07.89 Other chest pain (principal); R53.83 Other fatigue; R05 Cough; J45.909 Unspecified asthma, uncomplicated; Z88.1 Allergy status to other antibiotic agents; Z88.6 Allergy status to analgesic agent; Z88.5 Allergy status to narcotic agent
CPT/HCPCS: 36415; 71046; 80053; 84484; 85025; 93005; 99285; J8540

== ENCOUNTER 2019-12-23 16:48 | Emergency (ER) | payer OTHER ==
[~2019-12-23] VITALS: Ht 165.1 cm; Wt 79.0 kg
[2019-12-23 17:27] LABS: BILIRUBIN,URINE NEGATIVE (NEG); CLARITY,URINE CLEAR; COLOR,URINE YELLOW; NITRITE,URINE NEGATIVE (NEG); PROTEIN,URINE 30 mg/dL (NEG-TRACE); UROBILINOGEN,URINE 0.2 mg/dL (0.2 mg/dL)
[2019-12-23 17:40] LABS: BACTERIA,URINE MODERATE /HPF (0-FEW); RBC,URINE RARE /HPF (0-2); SQUAMOUS EPITHELIAL CELL,UR FEW /LPF; WBC,URINE RARE /HPF (0-4)
[2019-12-23] MEDS ORDERED: cefTRIAXone IM 250 MG VIAL IM ONE (17:45)
--- NOTE | 2019-12-23 17:48 | PHYS DOC ---
Past Medical History Past Medical History: Anemia, Asthma Additional Past Medical Histor: Asthma Past Surgical History: Other Additional Past Surgical Histo: X , 2011 and December 2016,D&C Smoking Status: Never Smoker Alcohol Use: None Drug Use: None Adult General Chief Complaint Chief Complaint: VAGINAL BLEEDING HPI HPI Patient is a 34 year old Female who presents with states 3 hours prior to arrival [place] having lower abdominal cramping and heavy vaginal bleeding. She states she doesn't expect her period beginning. She states now the cramping is gone and now the bleeding is light. She states that she did see a garcia stringy clot come out that she's never seen before. She states that that is what brought her into the ER. She also complains of vaginal odor. She would also like to be treated for sexually transmitted diseases today. She denies any pain at this time Review of Systems Review of Systems : Vaginal bleeding and garcia clot. Denies dysuria or hematuria [] All other systems were reviewed and found to be within normal limits, except as documented in this note. Current Medications Current Medications Current Medications Medications (Trade) Dose Ordered Sig/Bhavani Start Time Stop Time Status Last Admin Dose Admin Ceftriaxone Sodium (Rocephin Im) 250 mg 1X ONCE 12/23/19 17:45 12/23/19 17:46 DC 12/23/19 18:19 250 MG Allergies Allergies Allergies Coded Allergies Type Severity Reaction Last Updated Verified azithromycin Allergy Severe SHORTNESS OF AIR 12/18/17 Yes acetaminophen Adverse Reaction Intermediate Nausea 12/18/17 Yes oxycodone Adverse Reaction Intermediate nausea 12/18/17 Yes Physical Exam Physical Exam Constitutional: Well developed, well nourished, no acute distress, non-toxic appearance. [] HENT: Normocephalic, atraumatic, bilateral external ears normal, oropharynx moist, no oral exudates, nose normal. [] Eyes: PERRLA, EOMI, conjunctiva normal, no discharge. [] Neck: Normal range of motion, no tenderness, supple, no stridor. [] Cardiovascular:Heart rate regular rhythm, no murmur [] Lungs & Thorax: Bilateral breath sounds clear to auscultation [] Abdomen: Bowel sounds normal, soft, no tenderness, no masses, no pulsatile masses. [] Skin: Warm, dry, no erythema, no rash. [] Back: No tenderness, no CVA tenderness. [] Extremities: No tenderness, no cyanosis, no clubbing, ROM intact, no edema. [] Neurologic: Alert and oriented X 3, normal motor function, normal sensory function, no focal deficits noted. [] Psychologic: Affect normal, judgement normal, mood normal. Normal Physical Exam [] Current Patient Data Vital Signs Vital Signs Date Time Temp Pulse Resp B/P (MAP) Pulse Ox O2 Delivery O2 Flow Rate FiO2 12/23/19 17:11 98.4 90 16 120/62 (81) 100 Room Air 98.4 Lab Values Laboratory Tests Test 12/23/19 17:11 12/23/19 17:14 12/23/19 18:12 Urine Collection Type Unknown Urine Color Yellow Urine Clarity Clear Urine pH 6.0 Urine Specific [place] >=1.030 Urine Protein 30 mg/dL (NEG-TRACE) Urine Glucose (UA) Negative mg/dL (NEG) Urine Ketones (Stick) Negative mg/dL (NEG) Urine Blood Moderate (NEG) Urine Nitrite Negative (NEG) Urine Bilirubin Negative (NEG) Urine Urobilinogen Dipstick 0.2 mg/dL (0.2 mg/dL) Urine Leukocyte Esterase Negative (NEG) Urine RBC Rare /HPF (0-2) Urine WBC Rare /HPF (0-4) Urine Squamous Epithelial Cells Few /LPF Urine Bacteria Moderate /HPF (0-FEW) Urine Mucus Marked /LPF POC Urine HCG, Qualitative Hcg negative (Negative) White Blood Count 5.5 x10^3/uL (4.0-11.0) Red Blood Count 3.88 x10^6/uL (3.50-5.40) Hemoglobin 8.4 g/dL (12.0-15.5) L Hematocrit 27.0 % (36.0-47.0) L Mean Corpuscular Volume 70 fL (79-100) L Mean Corpuscular Hemoglobin 22 pg (25-35) L Mean Corpuscular Hemoglobin Concent 31 g/dL (31-37) Red Cell Distribution Width 18.1 % (11.5-14.5) H Platelet Count 252 x10^3/uL (140-400) Neutrophils (%) (Auto) 58 % (31-73) Lymphocytes (%) (Auto) 30 % (24-48) Monocytes (%) (Auto) 9 % (0-9) Eosinophils (%) (Auto) 2 % (0-3) Basophils (%) (Auto) 1 % (0-3) Neutrophils # (Auto) 3.2 x10^3/uL (1.8-7.7) Lymphocytes # (Auto) 1.6 x10^3/uL (1.0-4.8) Monocytes # (Auto) 0.5 x10^3/uL (0.0-1.1) Eosinophils # (Auto) 0.1 x10^3/uL (0.0-0.7) Basophils # (Auto) 0.1 x10^3/uL (0.0-0.2) Platelet Estimate Adequate (ADEQUATE) Polychromasia Slight Hypochromasia Mod Anisocytosis Slight Microcytosis Marked Ovalocytes Few Sodium Level 140 mmol/L (136-145) Potassium Level 3.3 mmol/L (3.5-5.1) L Chloride Level 104 mmol/L (98-107) Carbon Dioxide Level 27 mmol/L (21-32) Anion Gap 9 (6-14) Blood Urea Nitrogen 10 mg/dL (7-20) Creatinine 0.7 mg/dL (0.6-1.0) Estimated GFR (Cockcroft-Gault) 114.6 BUN/Creatinine Ratio 14 (6-20) Glucose Level 89 mg/dL (70-99) Calcium Level 8.8 mg/dL (8.5-10.1) Total Bilirubin 0.3 mg/dL (0.2-1.0) Aspartate Amino Transferase (AST) 14 U/L (15-37) L Alanine Aminotransferase (ALT) 15 U/L (14-59) Alkaline Phosphatase 48 U/L (46-116) Total Protein 7.8 g/dL (6.4-8.2) Albumin 3.6 g/dL (3.4-5.0) Albumin/Globulin Ratio 0.9 (1.0-1.7) L Laboratory Tests 12/23/19 18:12 Laboratory Tests 12/23/19 18:12 Microbiology 12/23/19 Wet Prep - Final, Complete EKG EKG [] Radiology/Procedures Radiology/Procedures [] Impressions: [facility] [address] [place], [place] [id number] IMAGING REPORT Signed PATIENT: HENRIQUE LANDINOUNT: [id number] : 1985 LOCATION: ER AGE: 34 SEX: F EXAM STATUS: REG ER ORD. PHYSICIAN: ANAMARIA LOUISE APRN REASON: VAGINAL BLEEDING PROCEDURE: PELVIS W/TV INDICATION: Vaginal bleeding COMPARISON: None available. TECHNIQUE: Transabdominal and endovaginal sonography was performed FINDINGS: The uterus measures 10.3 x 6.5 x 6.1 cm. The endometrium measures 1.4 cm on endovaginal images. 2.4 x 2.2 cm posterior uterine heterogeneous lesion, likely fibroid. The right ovary measures 2.9 x 2.4 x 1.9 cm. The left ovary measures 3.7 x 2.4 x 1.6 cm. Small volume free pelvic fluid. IMPRESSION: 1. Posterior uterine hypoechoic lesion, likely uterine fibroid. 2. Small volume free pelvic fluid. 3. Endometrial prominence, can be correlated with phase of menstrual cycle. Electronically signed by: Lan Lawson MD (12/23/2019 8:32 PM) [facility] DICTATED and SIGNED BY: LAN LAWSON MD DATE: 12/23/192031 Course & Med Decision Making Course & Med Decision Making Pertinent Labs and Imaging studies reviewed. (See chart for details) Alert and oriented. Abdomen is soft and nontender. Speaks in full clear sentences. Vital signs within normal limits. Skin pink warm and dry. Lungs are clear to auscultation all lobes. Patient denies fever, dysuria, back pain, nausea, vomiting, diarrhea, chest pain, shortness of air, sinus, headache, visual changes, weakness, numbness or tingling. Patient is given Rocephin IM and she is allergic to Zithromax so she will get doxycycline to treat her prophylactically for Chlamydia. Pelvic Exam: [employer] present Abdomen: Nontender External Genitalia: Normal Skin Speculum: Normal vaginal mucosa, Bloody but normal cervical discharge Bimanual: No adnexal masses or tenderness, No CMT [] Dragon Disclaimer Dragon Disclaimer This electronic medical record was generated, in whole or in part, using a voice recognition dictation system. Departure Departure Impression: Primary Impression: Vaginal bleeding Additional Impressions: Bacterial vaginosis Uterine fibroid Disposition: HOME, SELF-CARE Condition: STABLE Referrals: NO PCP (PCP) JAD WEAVER Jr, MD Patient Instructions: Bacterial Vaginosis, Uterine Fibroid, [id number] Additional Instructions: REMEMBER THAT IN 48 OURS YOU WILL BE CALLED WITH RESULTS ONLY IF THEY ARE POSITIVE. TAKE MEDICATION WITH FOOD AND PRESCRIBED. Scripts Doxycycline Hyclate (DOXYCYCLINE HYCLATE) 100 Mg Capsule 1 CAP PO BID, #14 CAP Prov: ANAMARIA LOUISE APRN 12/23/19 Metronidazole (METRONIDAZOLE) 70 Gm Gel.w.appl 70 GM VG QHS for 5 Days, #5 EACH Prov: ANAMARIA LOUISE APRN 12/23/19 Problem Qualifiers Additional Impressions: Uterine fibroid Uterine leiomyoma location: unspecified location Qualified Codes: D25.9 - Leiomyoma of uterus, unspecified ANAMARIA LOUISE APRN Dec 23, 2019 17:48
[2019-12-23 18:20] LABS: BASO # 0.1 x10^3/uL (0.0-0.2); BASO % 1 % (0-3); EOS # 0.1 x10^3/uL (0.0-0.7); EOS % 2 % (0-3); HEMOGLOBIN 8.4 g/dL (12.0-15.5); LYMPH # 1.6 x10^3/uL (1.0-4.8); LYMPH % 30 % (24-48); MEAN CORPUSCULAR HEMOGLOBIN 22 pg (25-35); MEAN CORPUSCULAR HGB CONC 31 g/dL (31-37); MEAN CORPUSCULAR VOLUME 70 fL (79-100); MONO # 0.5 x10^3/uL (0.0-1.1); MONO % 9 % (0-9); NEUT # 3.2 x10^3/uL (1.8-7.7); NEUT % 58 % (31-73); PLATELET COUNT 252 x10^3/uL (140-400); RED BLOOD COUNT 3.88 x10^6/uL (3.50-5.40); RED CELL DISTRIBUTION WIDTH 18.1 % (11.5-14.5); WHITE BLOOD COUNT 5.5 x10^3/uL (4.0-11.0)
[2019-12-23 18:31] LABS: CALCIUM 8.8 mg/dL (8.5-10.1); CREATININE 0.7 mg/dL (0.6-1.0); GFR 114.6; POTASSIUM 3.3 mmol/L (3.5-5.1)
[2019-12-23 18:37] LABS: ALBUMIN 3.6 g/dL (3.4-5.0); ALBUMIN/GLOBULIN RATIO 0.9 (1.0-1.7); TOTAL BILIRUBIN 0.3 mg/dL (0.2-1.0); TOTAL PROTEIN 7.8 g/dL (6.4-8.2)
[2019-12-23 18:54] LABS: PLT ESTIMATE ADEQUATE (ADEQUATE)
[2019-12-23 18:55] LABS: ANISOCYTOSIS SLIGHT; HYPOCHROMIA MOD; MICROCYTOSIS MARKED; POLYCHROMASIA SLIGHT
[2019-12-23 18:56] LABS: OVALOCYTES FEW
[2019-12-23] MEDS ORDERED: DOXY100C2 PO (19:53)
[2019-12-23] MEDS ORDERED: METR70GE2 VG (19:53)
[2019-12-23 20:30] VITALS: BP 107/72
--- NOTE | 2019-12-23 20:35 | RAD ---
INDICATION: Vaginal bleeding COMPARISON: None available. TECHNIQUE: Transabdominal and endovaginal sonography was performed FINDINGS: The uterus measures 10.3 x 6.5 x 6.1 cm. The endometrium measures 1.4 cm on endovaginal images. 2.4 x 2.2 cm posterior uterine heterogeneous lesion, likely fibroid. The right ovary measures 2.9 x 2.4 x 1.9 cm. The left ovary measures 3.7 x 2.4 x 1.6 cm. Small volume free pelvic fluid. IMPRESSION: 1. Posterior uterine hypoechoic lesion, likely uterine fibroid. 2. Small volume free pelvic fluid. 3. Endometrial prominence, can be correlated with phase of menstrual cycle. Electronically signed by: Lan Diallo MD (12/23/2019 8:32 PM) [facility]
[2019-12-24 19:09] LABS: GC PROBE Negative (Negative)
== END 2019-12-23 20:43 | disposition home or self-care (01) ==
LOC: ER 16:48
DX: D25.9 Leiomyoma of uterus, unspecified (principal); N93.9 Abnormal uterine and vaginal bleeding, unspecified; N76.0 Acute vaginitis; B96.89 Other specified bacterial agents as the cause of diseases classified elsewhere; J45.909 Unspecified asthma, uncomplicated; Z88.1 Allergy status to other antibiotic agents; Z88.5 Allergy status to narcotic agent
CPT/HCPCS: 36415; 76830; 76856; 80053; 81001; 81025; 85025; 87086; 87491; 87591; 96372; 99285; J0696; Q0111